=== PATIENT | male | born 1980 | race Caucasian/White ===

== ENCOUNTER 2018-06-11 11:51 | Emergency (ER) | payer SELFPAY ==
--- NOTE | 2018-06-11 13:15 | RAD ---
INDICATION: Right wrist injury. TECHNIQUE: 3 views of the right wrist were obtained. FINDINGS: There is a transverse slightly impacted fracture of the radial metaphysis with probable extension to the distal articular surface. No other fractures are seen. IMPRESSION: SLIGHTLY COMMINUTED, MILDLY IMPACTED INTRA-ARTICULAR FRACTURE OF THE DISTAL RADIUS.
[2018-06-11] MEDS ORDERED: Ibuprofen TAB* 800 MG PO ONE (14:53)
[2018-06-11] MEDS ORDERED: HYDROcodone/ACETAMIN 5-325 MG* 1 TAB PO ONE (14:53)
--- NOTE | 2018-06-11 15:30 | ED ---
Upper Extremity Pain - HPI Summary HPI Summary: Pt here w/ Rt wrist pain since he fell last night at 23:30pm in a mosh pit at a concert. Unsure of details of his fall, but fell in some fashion onto Rt UE - wrist pain and swelling since. 3rd, 4th and 5th fingers feel tingly but no eden numbers or weakness. He reports shoulder pain as well - worse w/ movement but pt declines further evaluation/XR/treatment of shoulder. Tried 800mg ibuprofen before bed last night - did not help. No other injuries to report. - History of Current Complaint Chief Complaint: EDExtremityUpper Stated Complaint: RT WRIST INJURY Time Seen by Provider: 06/11/18 14:04 Hx Obtained From: Patient PMH/Surg Hx/FS Hx/Imm Hx Previously Healthy: Yes Endocrine/Hematology History: Denies: Hx Anticoagulant Therapy, Hx Blood Disorders - Immunization History Immunizations Up to Date: Yes Infectious Disease History: No Infectious Disease History: Denies: Traveled Outside the in Last 30 Days - Social History Occupation: Employed Full-time - educational program assistant at [employer] Alcohol Use: Occasionally Hx Substance Use: No Substance Use Type: Reports: None Hx Tobacco Use: Yes Smoking Status (MU): Light Every Day Tobacco Smoker Review of Systems Positive: no symptoms reported Positive: Arthralgia, Myalgia, Decreased ROM, Edema Skin: Negative Positive: Paresthesia. Negative: Headache, Weakness, Numbness Psychological: Normal All Other Systems Reviewed And Are Negative: Yes Physical Exam Triage Information Reviewed: Yes Vital Signs On Initial Exam: Initial Vitals Temp Pulse Resp BP Pulse Ox 97.8 F 80 18 90/49 98 06/11/18 12:13 06/11/18 12:13 06/11/18 12:13 06/11/18 12:13 06/11/18 12:13 Vital Signs Reviewed: Yes Appearance: Positive: Well-Appearing, Well-Nourished, Pain Distress - moderate Skin: Positive: Warm, Skin Color Reflects Adequate Perfusion, Dry - edema about the Right wrist but no skin breakdown Head/Face: Positive: Normal Head/Face Inspection Eyes: Positive: EOMI ENT: Positive: Hearing grossly normal Respiratory/Lung Sounds: Positive: Breath Sounds Present Cardiovascular: Positive: Pulses are Symmetrical in both Upper and Lower Extremities Musculoskeletal: Positive: Strength/ROM Intact - Rt fingers, elbow, Limited @ - Rt wrist and shoulder Neurological: Positive: Sensory/Motor Intact - Rt wrist motor limited d/t pain but is able to move, Alert, Oriented to Person Place, Time, CN Intact II-III Psychiatric: Positive: Normal Procedures - Splinting Right Upper Extremity Hand-Made Type: fiberglass Splint: sugar-tong Pre-Proc Neuro Vasc Exam: normal Post-Proc Neuro Vasc Exam: normal Diagnostics - Vital Signs Vital Signs Temp Pulse Resp BP Pulse Ox 06/11/18 12:13 97.8 F 80 18 90/49 98 - Laboratory Lab Statement: Any lab studies that have been ordered have been reviewed, and results considered in the medical decision making process. Re-Evaluation - Re-Evaluation First Eval Change: Improved Course/Dx - Course Course Of Treatment: XR: "Slightly comminuted, mildly impacted intra-articular fracture of the distal radius" - Diagnoses Provider Diagnoses: Closed fracture of right wrist Discharge - Sign-Out/Discharge Documenting (check all that apply): Patient Departure - Discharge Plan Condition: Stable Disposition: HOME Prescriptions: Ibuprofen TAB* [Motrin TAB* 800 MG] 800 mg PO Q8HR PRN #20 tab PRN Reason: Pain Patient Education Materials: Wrist Fracture in Adults (ED) Forms: *Work Release Referrals: Javan Cee MD [Medical Doctor] - Additional Instructions: REST, ICE, ELEVATE AND KEEP SPLINT CLEAN, DRY AND IN PLACE UNTIL SEEN BY ORTHOPEDICS. Call orthopedics today to schedule follow-up. You may take ibuprofen alternating with acetaminophen as needed for pain *If you develop numbness, tingling, weakness, swelling or skin discoloration, loosen PALAK wrap and elevate arm for 20 minutes. If symptoms persist, return to ED - Billing Disposition and Condition Condition: STABLE Disposition: Home
[2018-06-11 16:22] VITALS: BP 118/70
== END 2018-06-11 15:48 | disposition home or self-care (01) ==
LOC: ED 11:51
DX: S52.571A Other intraarticular fracture of lower end of right radius, initial encounter for closed fracture (principal); W17.89XA Other fall from one level to another, initial encounter; Y92.89 Other specified places as the place of occurrence of the external cause; F17.200 Nicotine dependence, unspecified, uncomplicated
CPT/HCPCS: 99282; A9270-GY